=== PATIENT | male | born 1960 | race African-American/Black ===

== ENCOUNTER 2024-11-30 03:50 | Inpatient (IN) | payer OTHER, MEDICAID ==
[~2024-11-30] VITALS: Ht 167.6 cm; Wt 74.5 kg
[2024-11-30] MEDS: ACETAMINOPHEN 325 MG TAB PO ONE (04:10)
--- NOTE | 2024-11-30 04:34 | ED.PDOC ---
SOB-HPI HPI Comments 64-YEAR-OLD MALE PRESENTS TO ER WITH COMPLAINTS OF COUGH X3 DAYS. PATIENT REPORTS THAT HE HAS BEEN EXPERIENCING PRODUCTIVE COUGH WITH GREEN PHLEGM AND CONGESTION X3 DAYS WITH ASSOCIATED FEVER X1 DAY. DENIES USE OF MEDICATIONS FOR CURRENT SYMPTOMS. DENIES ANY CURRENT PAIN. PATIENT PRESENTS TO ER AMBULATORY ON ARRIVAL, WITH STEADY GAIT, IN NO DISTRESS AND IS NOTED TO BE FEBRILE AT 100.9 F. DENIES SHORTNESS OF BREATH, CHEST PAIN, HEMOPTYSIS, SORE THROAT, HEADACHE, DIZZINESS, NAUSEA/VOMITING, KNOWN EXPOSURE TO SICK CONTACTS, CHANGES IN URINATION/BM OR ANY FURTHER SYMPTOMS/COMPLAINTS Chief Complaint: Flu like Time Seen by MD: 04:08 Primary Care Provider: CANDELARIA Bettencourt notes: Nurses Notes, Medications, Allergies Information Source: Patient Mode of Arrival: Ambulatory Past Medical History PAST MEDICAL HISTORY: DM, HTN Past Medical History (Other): CKD Surgical History (Other): CERVICAL SPINAL SURGERY Family History Family History: Unknown Social History Smoker: Non-Smoker Alcohol: Denies ETOH Use Drugs: Denies Drug Use Lives In: Home Constitutional: reports: others ( STATED IN HPI) EENTM: denies: blurred vision, double vision, ear bleeding, ear discharge, ear drainage, ear pain, ear ringing, eye pain, eye redness, hearing loss, mouth pain, mouth swelling, nasal discharge, nose bleeding, nose congestion, nose pain, photophobia, tearing, throat pain, throat swelling, voice changes, others Respiratory: reports: others ( STATED IN HPI) Cardiovascular: denies: chest pain, dizzy spells, diaphoresis, Dyspnea on exertion, edema, irregular heart beat, left arm pain, lightheadedness, palpitations, PND, syncope, others Gastrointestinal: denies: abdomen distended, abdominal pain, blood streaked bowels, constipated, diarrhea, dysphagia, difficulty swallowing, hematemesis, melena, nausea, poor appetite, poor fluid intake, rectal bleeding, rectal pain, vomiting, others Genitourinary: denies: burning, dysuria, flank pain, frequency, hematuria, incontinence, penile discharge, penile sore, pain, testicle pain, testicle swelling, urgency, others Neurological: denies: dizziness, fainting, headache, left sided numbness, left sided weakness, numbness, paresthesia, pre-existing deficit, right sided numbness, right sided weakness, seizure, speech problems, tingling, tremors, weakness, others Musculoskeletal: denies: back pain, gout, joint pain, joint swelling, muscle pain, muscle stiffness, neck pain, others Integumetry: denies: bruises, change in color, change in hair/nails, dryness, laceration, lesions, lumps, rash, wounds, others Allergic/Immunocompromised: denies: Difficulty Healing, Frequent Infections, Hives, Itching, others Hematologic/Lymphatic: denies: anemia, blood clots, easy bleeding, easy bruising, swollen glands, others Endocrine: denies: excessive hunger, excessive sweating, excessive thirst, excessive urination, flushing, intolerance to cold, intolerance to heat, unexplained weight gain, unexplained weight loss, others Psychiatric: denies: anxiety, bipolar disorder, depression, hopeless, panic disorder, schizophrenia, sleepless, suicidal, others Physical Exam General Appearance: No Apparent Distress HEENT: Normal ENT Inspection, PERRL/EOMI, Pharynx Normal, TMs Normal Neck: Full Range of Motion, Non-Tender, Normal Respiratory: Chest Non-Tender, Lungs Clear, No Accessory Muscle Use, No Respiratory Distress, Normal Breath Sounds Cardiovascular: No Murmur, No Gallop, Tachycardia Breast Exam: Deferred Gastrointestinal: NOT DONE Genitalia: Deferred Pelvic: Deferred Rectal: Deferred Extremities: Normal capillary refill, Normal range of motion Neurologic: Alert, geriatric nurse II-XII nml as Tested, No Motor Deficits, Normal Affect, Normal Mood, No Sensory Deficits Cerebellar Function: Normal Reflexes: Normal Skin: Dry, Normal Color, Warm Peripheral Pulses: 3+ Radial (R), 3+ Radial (L), 3+ Brachial (R), 3+ Brachial (L) Lymphatic: No Adenopathy Was a procedure done? Was a procedure done?: No Sedation Sedation?: No Differential Dx Differential Diagnosis: Pulmonary Embolism, Respiratory Distress, Sinusitis, URI X-Ray, Labs, Meds, VS Vital Signs Date Time Temp Pulse Resp B/P (MAP) Pulse Ox O2 Delivery O2 Flow Rate FiO2 11/30/24 06:24 98.5 98.5 11/30/24 06:24 98.5 11/30/24 05:46 94 98 11/30/24 05:24 100.8 11/30/24 05:10 100.8 11/30/24 04:25 18 95 Room Air* 0 21 11/30/24 04:25 100.9 112 18 144/80 (101) 97 100.9 11/30/24 04:10 100.9 11/30/24 03:58 100.9 112 18 144/80 (101) 97 Lab Test 11/30/24 06:15 11/30/24 04:52 11/30/24 04:06 Range/Units Lactic Acid Level 1.4 2.5 *H 0.4-2.0 mmol/L White Blood Count 8.7 4.4-10.8 10^3/uL Red Blood Count 4.16 L 4.5-5.90 10^6/uL Hemoglobin 12.9 L 13.5-17.5 g/dL Hematocrit 38.8 L 41.0-53.0 % Mean Corpuscular Volume 93.3 80.0-100.0 fL Mean Corpuscular Hemoglobin 31.0 28.0-32.0 pg Mean Corpuscular Hemoglobin Concent 33.2 32.0-36.0 g/dL Red Cell Distribution Width 14.1 11.8-14.3 % Platelet Count 260 140-450 10^3/uL Mean Platelet Volume 7.9 6.9-10.8 fL Neutrophils (%) (Auto) 74.7 37.0-80.0 % Lymphocytes (%) (Auto) 11.8 10.0-50.0 % Monocytes (%) (Auto) 11.3 0.0-12.0 % Eosinophils (%) (Auto) 1.6 0.0-7.0 % Basophils (%) (Auto) 0.6 0.0-2.0 % Neutrophils # (Auto) 6.5 1.6-8.6 10 ^3/uL Lymphocytes # (Auto) 1.0 0.4-5.4 10 ^3/uL Monocytes # (Auto) 1.0 0-1.3 10 ^3/uL Eosinophils # (Auto) 0.1 0-0.8 10 ^3/uL Basophils # (Auto) 0.1 0-0.2 10 ^3/uL Nucleated Red Blood Cells 0.0 % Sodium Level 134 L 136-145 mmol/L Potassium Level 3.9 3.5-5.1 mmol/L Chloride Level 104 98-107 mmol/L Carbon Dioxide Level 22 20-31 mmol/L Anion Gap 8 5-15 Blood Urea Nitrogen 14 9-23 mg/dL Creatinine 1.43 H 0.700-1.30 mg/dL Glomerular Filtration Rate Calc 54 >90 mL/min BUN/Creatinine Ratio 9.8 L 10.0-20.0 Serum Glucose 196 H 74-106 mg/dL Hemoglobin A1c 6.4 H <5.7 % A1C Calcium Level 9.3 8.7-10.4 mg/dL Influenza Type A Antigen Negative Negative Influenza Type B Antigen Negative Negative SARS-CoV-2 Antigen (Rapid) Negative NEGATIVE Current Medications Medications (Trade) Dose Ordered Sig/[place] Route Start Time Stop Time Status Last Admin Acetaminophen (Tylenol Tablet) 650 mg ONCE ONCE PO 11/30/24 04:15 11/30/24 04:16 DC 11/30/24 04:10 Ceftriaxone Sodium (Rocephin) 1,000 mg ONCE ONCE IM 11/30/24 04:30 11/30/24 04:31 DC 11/30/24 04:38 Ibuprofen (Motrin Tablet) 800 mg ONCE ONCE PO 11/30/24 05:30 11/30/24 05:31 DC 11/30/24 05:24 Doxycycline Hyclate 100 ml @ 50 mls/hr ONCE ONCE IV 11/30/24 06:15 11/30/24 08:14 DC 11/30/24 06:26 Sodium Chloride 1,000 ml @ 1,000 mls/hr Q1H ONCE IV 11/30/24 06:15 11/30/24 07:14 DC 11/30/24 06:26 Sodium Chloride 1,000 ml @ 75 mls/hr [id number] IV 11/30/24 07:15 11/30/24 07:15 PATIENT: DOUGLAS CONNORACCT: [id number]: [id number] : 1960 LOC: ER ROOM / BED: / AGE / SEX: 64 / M ADM STATUS: REG ER SERVICE [id number] ORDERING PHYSICIAN: CLEVELAND HANEY PROCEDURE(s): CXR1 - CHEST XRAY 1 VIEW REASON: COUGH ORDER NUMBER(s): [id number], ACCESSION NUMBER(s): [id number] CHEST RADIOGRAPH Indication: COUGH Technique: Single frontal view of the chest was obtained COMPARISON: None FINDINGS: Lines and Tubes: None Lungs: Patchy opacities in the right lower lobe. Pleura: No effusion. No pneumothorax. Cardiomediastinal contours: Unremarkable Bones: Unremarkable IMPRESSION: Subtle patchy opacity in the right lower lobe may represent atelectasis or early/ developing pneumonia. ATED BY: CHANDU WILDE MD DICTATED DATE/TIME: 11/30/24543 SIGNED BY: CHANDU WILDE MD SIGNED DATE/TIME: 11/30/24543 CC: CBC ORDERED WITHOUT ANY SIGNIFICANT ABNORMALITIES BMP REVIEWED ALL SWAB RESULTS REVIEWED- NEGATIVE TYLENOL 650 MG P.O. ORDERED ROCEPHIN 1 G IM ORDERED IBUPROFEN 800 MG P.O. ORDERED LACTIC ACID REVIEWED - 2 .4 REPEAT LACTIC ORDERED CHEST X-RAY REVIEWED BLOOD CULTURE ORDERED HEP-LOCK IV ORDERED NS 1 L IV ORDERED DOXYCYCLINE 100 MG IV ORDERED PATIENT RESTING COMFORTABLY AT BEDSIDE IN NO DISTRESS PATIENT PUT UP FOR ADMISSION FOR PNEUMONIA AND NEED FOR IV ANTIBIOTICS Images Reviewed?: Images reviewed and evaluated by me Time of 1ST Reevaluation: 04:32 Reevaluation 1ST: N/A Patient Education/Counseling: Diagnosis, Treatment, Prognosis, Need For Follow Up Family Education/Counseling: No Family Present Departure 1 Departure Time of Disposition: 05:42 Impression: Primary Impression: Pneumonia Qualified Codes: J18.9 - Pneumonia, unspecified organism Disposition: ADMITTED INPATIENT Condition: Stable Critical Care Note Critical Care Time?: No Stability Stability form required: No Heart Score Heart Score: Heart Score Response (Comments) Value History N/A 0 EKG N/A 0 Age N/A 0 Risk Factors N/A 0 Troponin N/A 0 Total 0 CLEVELAND HANEY Nov 30, 2024 04:34
[2024-11-30] MEDS: cefTRIAXone SOD 1,000 MG VL IM ONE (04:38)
[2024-11-30 04:49] LABS: COVID19 ANTIGEN SOFIA FIA NEGATIVE (NEGATIVE)
[2024-11-30 04:50] LABS: Rapid Influenza A Negative (Negative); Rapid Influenza B Negative (Negative)
[2024-11-30 05:14] LABS: Basophils # (auto) 0.1 10 ^3/uL (0-0.2); Basophils % (auto) 0.6 % (0.0-2.0); Eosinophils # (auto) 0.1 10 ^3/uL (0-0.8); Eosinophils % (auto) 1.6 % (0.0-7.0); Hematocrit 38.8 % (41.0-53.0); Hemoglobin 12.9 g/dL (13.5-17.5); Lymphocytes % (auto) 11.8 % (10.0-50.0); Mean Corpuscular Hgb Conc. 33.2 g/dL (32.0-36.0); Mean Corpuscular Volume 93.3 fL (80.0-100.0); Monocytes % (auto) 11.3 % (0.0-12.0); Neutrophils # (auto) 6.5 10 ^3/uL (1.6-8.6); Neutrophils % (auto) 74.7 % (37.0-80.0); Platelet Count (auto) 260 10^3/uL (140-450); Red Blood Cells 4.16 10^6/uL (4.5-5.90); Red Cell Distribution Width 14.1 % (11.8-14.3); White Blood Cell 8.7 10^3/uL (4.4-10.8)
[2024-11-30] MEDS: IBUPROFEN 800 MG TAB PO ONE (05:24)
--- NOTE | 2024-11-30 05:49 | DVH ---
CHEST RADIOGRAPH Indication: COUGH Technique: Single frontal view of the chest was obtained COMPARISON: None FINDINGS: Lines and Tubes: None Lungs: Patchy opacities in the right lower lobe. Pleura: No effusion. No pneumothorax. Cardiomediastinal contours: Unremarkable Bones: Unremarkable IMPRESSION: Subtle patchy opacity in the right lower lobe may represent atelectasis or early/ developing pneumoni a.
[2024-11-30 05:51] LABS: Chloride 104 mmol/L (98-107); Potassium 3.9 mmol/L (3.5-5.1)
[2024-11-30] MEDS ORDERED: AZIT-43 PO (05:51)
[2024-11-30] MEDS ORDERED: PRED10TA PO (05:51)
[2024-11-30] MEDS ORDERED: ACET500T58 PO (05:51)
[2024-11-30 05:52] LABS: Anion Gap 8 (5-15); Carbon Dioxide 22 mmol/L (20-31)
[2024-11-30 05:53] LABS: Calcium 9.3 mg/dL (8.7-10.4)
[2024-11-30 05:55] LABS: Sodium 134 mmol/L (136-145)
[2024-11-30 05:57] LABS: BUN/Creatinine Ratio 9.8 (10.0-20.0); Blood Urea Nitrogen 14 mg/dL (9-23)
[2024-11-30 06:00] LABS: Glucose 196 mg/dL (74-106)
[2024-11-30 06:02] LABS: Lactic Acid w/Reflex 2.5 mmol/L (0.4-2.0)
[2024-11-30] MEDS ORDERED: cefTRIAXone 1GM/50ML D5W 50 ML IV ONE (06:15)
[2024-11-30] MEDS: SODIUM CHLORIDE 0.9% 1,000 ML IV ONE (06:26)
[2024-11-30] MEDS: DOXYCYCLINE 100MG/100ML 100 ML IV ONE (06:26)
[2024-11-30] MEDS ORDERED: ONDANSETRON HCL 4 MG/2 ML VIAL IV PRN (07:15)
[2024-11-30] MEDS ORDERED: ALBUTEROL SULF 2.5 MG/0.5ML(0.5%) NEB SOLN NEB PRN (07:15)
[2024-11-30] MEDS ORDERED: IPRATROPIUM BROM 0.5 MG/2.5ML INH SOL NEB PRN (07:15)
[2024-11-30] MEDS: cefTRIAXone 1GM/50ML D5W 50 ML IV ONE (07:15)
[2024-11-30] MEDS: SODIUM CHLORIDE 0.9% 1,000 ML IV SCH (07:15)
[2024-11-30] MEDS ORDERED: DEXTROSE (50%) 50ML SYRG IV PRN (07:15)
[2024-11-30] MEDS ORDERED: ATOR40TA52 (07:48)
[2024-11-30] MEDS ORDERED: PANT40T (07:48)
[2024-11-30] MEDS ORDERED: LOSA-534 (07:48)
[2024-11-30] MEDS ORDERED: GABA-1250 (07:48)
--- NOTE | 2024-11-30 07:59 | DVHHP2 ---
History of Present Illness Reason for Visit: Cough, congestion, fever, and flu-like symptoms History of Present Illness Derrick Sheppard JR is a 64-year-old male with past medical history of hypertension, diabetes, and CKD who presents to the ED with cough, congestion, fever, and flu-like symptoms x3 days. Patient reports that he has been having productive green sputum. He denies any recent sick contacts. Patient denies any chest pain, shortness of breath, lightheadedness, dizziness, abdominal pain, nausea, vomiting, diarrhea, weakness, and urinary symptoms. Cardiovascular: HTN Renal/: Chronic renal insuff Endocrine: Diabetes Past Surgical History: Other ( Cervical spinal surgeries) Family History: DM, Other (Mom had transverse mellitus and dad had diabetes both ) Smoke: No ALCOHOL: none Drugs: None Lives: with Family Domestic Violence: Neg Review of Systems Constitutional: Yes: Fever; No: Chills, Sweats, Weakness, Malaise, Other Eyes: No: Pain, Vision change, Conjunctivae inflammation, Eyelid inflammation, Other, Redness ENT: No: Ear pain, Ear discharge, Nose pain, Nose discharge, Nose congestion, Mouth pain, Mouth swelling, Throat pain, Throat swelling, Other Respiratory: Cough, Sputum, Other (Congestion); No: Dry, Shortness of breath, SOB with excertion, Wheezing, Hemoptysis, Pleuritic Pain, Wheezing Cardiovascular: No: Chest Pain, Palpitations, Orthopnea, Paroxysmal Noc. Dyspnea, Edema, Lt Headedness, Other Gastrointestinal: No: Nausea, Vomiting, Abdominal Pain, Diarrhea, Constipation, Melena, Hematochezia, Other Genitourinary: No Dysuria, No Frequency, No Incontinence, No Hematuria, No Retention, No Other Musculoskeletal: No: other, neck pain, shoulder pain, arm pain, back pain, hand pain, leg pain, foot pain Skin: No: Rash, Lesions, Jaundice, Bruising, Other Neurological: No: Weakness, Numbness, Incoordination, Change in speech, Confusion, Seizures, Other Allergies: Coded Allergies: Niacin (Verified Allergy, Unknown, 11/30/24) Medications Current Medications Medications Dose Ordered Sig/[place] Route Start Time Stop Time Status Last Admin Dose Admin Ceftriaxone Sodium 50 ml @ 100 mls/hr DAILY@09 IV 11/30/24 09:00 UNV Azithromycin 250 ml @ 125 mls/hr DAILY IV 11/30/24 10:00 UNV Albuterol 2.5 mg Q6HWA NEB 11/30/24 12:00 UNV Albuterol 2.5 mg Q2HPRN PRN NEB 11/30/24 07:15 UNV Ipratropium [place] 0.5 mg Q6HWA NEB 11/30/24 12:00 UNV Ipratropium [place] 0.5 mg Q2HPRN PRN NEB 11/30/24 07:15 UNV Ondansetron HCl 4 mg Q4HP PRN IV 11/30/24 07:15 UNV Acetaminophen 650 mg Q6HP PRN PO 11/30/24 07:15 UNV Sodium Chloride 1,000 ml @ 75 mls/hr [id number] IV 11/30/24 07:15 UNV Diagnostic Test (Pha) 1 strip ACHS 11/30/24 11:30 UNV Insulin Human Regular ACHS SC 11/30/24 11:30 UNV Dextrose 50 ml UD PRN IV 11/30/24 07:15 UNV Exam Vital Signs Vital Signs Date Time Temp Pulse Resp B/P (MAP) Pulse Ox O2 Delivery O2 Flow Rate FiO2 11/30/24 06:24 98.5 98.5 11/30/24 05:46 94 98 11/30/24 04:25 18 Room Air* 0 21 11/30/24 04:25 144/80 (101) General Appearance: Alert, Oriented X3, Cooperative, No acute distress HEENT: Atraumatic, PERRLA, EOMI, Mucous membr. moist/pink Respiratory: Normal air movement Cardiovascular: Regular rate, Normal S1, Normal S2, No murmurs Abdominal: Normal bowel sounds, Soft, No tenderness, No hepatospenomegaly, No masses Extremities: No clubbing, No cyanosis, No edema, Normal pulses, No tenderness/swelling Skin: No rashes, No breakdown, No significant lesion Neuro: Normal gait, Normal speech, Strength at 5/5 X4 ext, Normal tone, Sensation intact Psych/Mental Status: Mental status NL, Mood NL Labs/Xrays Labs Test 11/30/24 06:15 11/30/24 04:52 11/30/24 04:06 Range/Units Lactic Acid Level 1.4 0.4-2.0 mmol/L White Blood Count 8.7 4.4-10.8 10^3/uL Red Blood Count 4.16 L 4.5-5.90 10^6/uL Hemoglobin 12.9 L 13.5-17.5 g/dL Hematocrit 38.8 L 41.0-53.0 % Mean Corpuscular Volume 93.3 80.0-100.0 fL Mean Corpuscular Hemoglobin 31.0 28.0-32.0 pg Mean Corpuscular Hemoglobin Concent 33.2 32.0-36.0 g/dL Red Cell Distribution Width 14.1 11.8-14.3 % Platelet Count 260 140-450 10^3/uL Mean Platelet Volume 7.9 6.9-10.8 fL Neutrophils (%) (Auto) 74.7 37.0-80.0 % Lymphocytes (%) (Auto) 11.8 10.0-50.0 % Monocytes (%) (Auto) 11.3 0.0-12.0 % Eosinophils (%) (Auto) 1.6 0.0-7.0 % Basophils (%) (Auto) 0.6 0.0-2.0 % Neutrophils # (Auto) 6.5 1.6-8.6 10 ^3/uL Lymphocytes # (Auto) 1.0 0.4-5.4 10 ^3/uL Monocytes # (Auto) 1.0 0-1.3 10 ^3/uL Eosinophils # (Auto) 0.1 0-0.8 10 ^3/uL Basophils # (Auto) 0.1 0-0.2 10 ^3/uL Nucleated Red Blood Cells 0.0 % Sodium Level 134 L 136-145 mmol/L Potassium Level 3.9 3.5-5.1 mmol/L Chloride Level 104 98-107 mmol/L Carbon Dioxide Level 22 20-31 mmol/L Anion Gap 8 5-15 Blood Urea Nitrogen 14 9-23 mg/dL Creatinine 1.43 H 0.700-1.30 mg/dL Glomerular Filtration Rate Calc 54 >90 mL/min BUN/Creatinine Ratio 9.8 L 10.0-20.0 Serum Glucose 196 H 74-106 mg/dL Calcium Level 9.3 8.7-10.4 mg/dL Influenza Type A Antigen Negative Negative Influenza Type B Antigen Negative Negative SARS-CoV-2 Antigen (Rapid) Negative NEGATIVE CHEST RADIOGRAPH Indication: COUGH Technique: Single frontal view of the chest was obtained COMPARISON: None FINDINGS: Lines and Tubes: None Lungs: Patchy opacities in the right lower lobe. Pleura: No effusion. No pneumothorax. Cardiomediastinal contours: Unremarkable Bones: Unremarkable IMPRESSION: Subtle patchy opacity in the right lower lobe may represent atelectasis or early/ developing pneumonia. Assessment/Plan Assessment/Plan Assessment/Plan: PNA with probable sepsis ESTHELA on CKD 3 Labs A.m. labs IV antibiotics-ceftriaxone + azithromycin Chest x-ray NS 1 L given ED Doxycycline given in ED Pain management Antiemetics Antipyretics Blood culture Lactic Flu swab COVID swab Chest x-ray in a.m. Diabetes type 2 uncontrolled Hemoglobin A1c ISS and Accu-Cheks Chronic hypertension Continue home medications FEN/PPX diet IV fluids DVT prophylaxis not indicated patient ambulating PUD prophylaxis -Protonix Admit patient to Med surg Discussed plan of care with patient and nurse Home medications reconciled Plan discussed with: Patient My Orders Orders - RONAN SHEA SLOT OPERATIONS DIRECTOR Procedure Category Date Status Time Ceftriaxone 1gm/50ml PHA 11/30/24 Logged D5w (Rocephin) 09:00 Ceftriaxone 1gm/50ml PHA 11/30/24 Logged D5w (Rocephin) 07:15 Azithromycin 500mg/ PHA 11/30/24 Logged 250ml (Zithromax 50 10:00 Azithromycin 500mg/ PHA 11/30/24 Logged 250ml (Zithromax 50 07:15 Albuterol Medneb PHA 11/30/24 Logged (Ventolin Medneb) 12:00 Albuterol Medneb PHA 11/30/24 Logged (Ventolin Medneb) 07:15 Ipratropium Medneb PHA 11/30/24 Logged (Atrovent Medneb) 12:00 Ipratropium Medneb PHA 11/30/24 Logged (Atrovent Medneb) 07:15 Chest Xray 1 View XY 12/01/24 Logged 04:00 Admit ADMIT 11/30/24 Transmitted 07:14 Allergies SHAUN 11/30/24 In Process 07:14 Code Status CODE 11/30/24 Transmitted 07:14 Ondansetron Hcl PHA 11/30/24 Logged (Zofran) 07:15 Complete Blood Count LAB 12/01/24 Verified 04:00 Comprehensive LAB 12/01/24 Verified Metabolic Panel 04:00 Cardiac DIET 11/30/24 Transmitted Diet-2gna,Lofat,Lochol Breakfast Acetaminophen Tablet PHA 11/30/24 Logged (Tylenol Tablet) 07:15 NS PHA 11/30/24 Transmitted 07:15 Hemoglobin A1c LAB 11/30/24 Logged 07:14 Glucose Blood PHA 11/30/24 Logged (Accu-Chek Comfort 11:30 Insulin R (Human) PHA 11/30/24 Logged (Insulin R) 11:30 Dextrose 50% Syringe PHA 11/30/24 Logged 07:15 Date of Service: Nov 30, 2024 Billing Provider: RONAN SHEA Common Visit Codes: [id number] INP/OBS CARE (HIGH) RONAN SHEA Nov 30, 2024 07:59
[2024-11-30] MEDS: AZITHROMYCIN 500MG/ 250ML 250 ML IV ONE (08:39)
[2024-11-30 08:57] VITALS: BP 133/81; PULSE 84; RESP 16; TEMP 97.7; O2SAT 98
[2024-11-30] MEDS ORDERED: ASPI-543 PO (09:16)
[2024-11-30] MEDS ORDERED: LORA-622 PO (09:16)
[2024-11-30] MEDS ORDERED: GLIP10TA9 PO (09:16)
[2024-11-30] MEDS: PANTOPRAZOLE 40 MG/10 ML VIAL INJ IV SCH (09:45)
[2024-11-30] MEDS: cefTRIAXone 1GM/50ML D5W 50 ML IV SCH (09:45)
[2024-11-30 09:50] VITALS: BP 133/81; PULSE 87; RESP 18; TEMP 97.7; O2SAT 99
[2024-11-30] MEDS ORDERED: AZITHROMYCIN 500MG/ 250ML 250 ML IV SCH (10:00)
[2024-11-30] MEDS: ALBUTEROL SULF 2.5 MG/0.5ML(0.5%) NEB SOLN NEB SCH (11:02)
[2024-11-30] MEDS: IPRATROPIUM BROM 0.5 MG/2.5ML INH SOL NEB SCH (11:03)
[2024-11-30 11:05] VITALS: PULSE 84; RESP 18; O2SAT 99
[2024-11-30 11:11] VITALS: PULSE 83; RESP 18; O2SAT 100
[2024-11-30] MEDS: InsuLIN REG 1unit/0.01ml Soln (100units/ml) SC SCH (11:30)
[2024-11-30] MEDS: ACCU-CHEK COMFORT CURVE STRIP VI SCH (11:44)
[2024-11-30 21:06] VITALS: BP 149/78; PULSE 111; RESP 16; TEMP 99; O2SAT 98
[2024-12-01] VITALS (14 sets, daily range): BP systolic 129–152; BP diastolic 66–100; PULSE 92–111; RESP 16–20; TEMP 97.7–99.6; O2SAT 96–100
--- NOTE | 2024-12-01 04:59 | DVH ---
CHEST RADIOGRAPH Indication: pna Technique: Single frontal view of the chest was obtained Comparison: XY CHEST XRAY 1 VIEW on DOS: 11/30/24 FINDINGS: Lines and Tubes: None Lungs: No focal consolidation. Pleura: No effusion. No pneumothorax. Cardiomediastinal contours: Unremarkable Bones: No acute osseous abnormality. IMPRESSION: 1. No acute cardiopulmonary disease.
[2024-12-01 07:44] LABS: Hematocrit 39.1 % (41.0-53.0); Hemoglobin 13.1 g/dL (13.5-17.5); Mean Corpuscular Hemoglobin 30.6 pg (28.0-32.0); Mean Corpuscular Hgb Conc. 33.4 g/dL (32.0-36.0); Mean Corpuscular Volume 91.7 fL (80.0-100.0); Platelet Count (auto) 233 10^3/uL (140-450); Red Blood Cells 4.27 10^6/uL (4.5-5.90); Red Cell Distribution Width 13.8 % (11.8-14.3); White Blood Cell 4.9 10^3/uL (4.4-10.8)
[2024-12-01 07:52] LABS: Band Neutrophils % (manual) 0; Basophils % (manual) 0 (0.0-2.0); Blast Cells 0; Metamyelocytes % 0; Myelocytes % 0; Promyelocytes % 0; Reactive Lymphocytes 0
[2024-12-01 08:05] LABS: Alanine Aminotransferase 18 U/L (7-40); Alkaline Phosphatase 57 U/L (46-116); Anion Gap 7 (5-15); BUN/Creatinine Ratio 11.7 (10.0-20.0); Blood Urea Nitrogen 15 mg/dL (9-23); Calcium 8.7 mg/dL (8.7-10.4); Carbon Dioxide 25 mmol/L (20-31); Chloride 106 mmol/L (98-107); Sodium 138 mmol/L (136-145)
[2024-12-01 08:06] LABS: Albumin 4.1 g/dL (3.2-4.8); Aspartate Aminotransferase 23 U/L (13-40); Bilirubin, Total 0.4 mg/dL (0.2-1.0); Total Protein 6.1 g/dL (5.7-8.2)
[2024-12-01 08:07] LABS: Eosinophils % (manual) 1 (0-7); Lymphocytes % (manual) 23 (10.0-50.0); Monocytes % (manual) 15 (0-12); Platelet Estimate Adequate
[2024-12-01 08:08] LABS: Glucose 113 mg/dL (74-106); Potassium 3.4 mmol/L (3.5-5.1)
[2024-12-01] MEDS: ACETAMINOPHEN 325 MG TAB PO PRN (08:37)
[2024-12-01] MEDS ORDERED: AZITHROMYCIN 500MG/ 250ML 250 ML IV SCH (10:00)
--- NOTE | 2024-12-01 12:58 | DVHPN2 ---
Reviewed: Care Plan, H&P, Labs, Medications, Previous Orders, Radiology Changes from previous H/P or p: No Changes Eyes: No Pain, No Vision change, No Conjunctivae inflammation, No Eyelid inflammation, No Other, No Redness ENT: No Ear pain, No Ear discharge, No Nose pain, No Nose discharge, No Nose congestion, No Mouth pain, No Mouth swelling, No Throat pain, No Throat swelling, No Other Cardiovascular: No Chest Pain, No Palpitations, No Orthopnea, No Paroxysmal Noc. Dyspnea, No Edema, No Lt Headedness, No Other Respiratory: Cough; No Dry, No Shortness of breath, No SOB with excertion, No Wheezing, No Hemoptysis, No Pleuritic Pain; Sputum, Other (Congestion) Gastrointestinal: No Nausea, No Vomiting, No Abdominal Pain, No Diarrhea, No Constipation, No Melena, No Hematochezia, No Other Genitourinary: No Dysuria, No Frequency, No Incontinence, No Hematuria, No Retention, No Other Musculoskeletal: No other, No neck pain, No shoulder pain, No arm pain, No back pain, No hand pain, No leg pain, No foot pain Skin: No Rash, No Lesions, No Jaundice, No Bruising, No Other Objective Vitals Vital Signs Date Time Temp Pulse Resp B/P (MAP) Pulse Ox O2 Delivery O2 Flow Rate FiO2 12/01/24 10:37 95 16 100 12/01/24 09:00 98.0 152/100 (117) 98.0 12/01/24 07:14 Room Air 0.0 12/01/24 07:14 21 Intake/Output Intake and Output 12/01/24 07:00 Intake Total 2000 ml Balance 2000 ml Intake IV Total 2000 ml Medications Current Medications Medications Dose Ordered Sig/[place] Route Start Time Stop Time Status Last Admin Dose Admin Ceftriaxone Sodium 50 ml @ 100 mls/hr DAILY@09 IV 11/30/24 09:00 12/01/24 12:13 100 MLS/HR Albuterol 2.5 mg Q6HWA NEB 11/30/24 12:00 12/01/24 10:34 2.5 MG Albuterol 2.5 mg Q2HPRN PRN NEB 11/30/24 07:15 Ipratropium [place] 0.5 mg Q6HWA NEB 11/30/24 12:00 12/01/24 10:34 0.5 MG Ipratropium [place] 0.5 mg Q2HPRN PRN NEB 11/30/24 07:15 Ondansetron HCl 4 mg Q4HP PRN IV 11/30/24 07:15 Acetaminophen 650 mg Q6HP PRN PO 11/30/24 07:15 12/01/24 08:37 650 MG Sodium Chloride 1,000 ml @ 75 mls/hr [id number] IV 11/30/24 07:15 12/01/24 11:18 75 MLS/HR Diagnostic Test (Pha) 1 strip ACHS 11/30/24 11:30 12/01/24 11:30 1 STRIP Insulin Human Regular ACHS SC 11/30/24 11:30 12/01/24 11:43 2 UNITS Dextrose 50 ml UD PRN IV 11/30/24 07:15 Pantoprazole Sodium 40 mg DAILY IV 11/30/24 10:00 12/01/24 11:17 40 MG Azithromycin 250 ml @ 125 mls/hr DAILY IV 12/01/24 10:00 Hold Laboratory Results Laboratory Tests 12/01/24 06:37 Chemistry Test 12/01/24 06:37 Albumin 4.1 g/dL (3.2-4.8) Calcium Level 8.7 mg/dL (8.7-10.4) Total Protein 6.1 g/dL (5.7-8.2) LFT Test 12/01/24 06:37 Alanine Aminotransferase (ALT) 18 U/L (7-40) Alkaline Phosphatase 57 U/L (46-116) Aspartate Amino Transferase (AST) 23 U/L (13-40) Total Bilirubin 0.4 mg/dL (0.2-1.0) Microbiology Microbiology Date/Time Source Procedure Growth Status 11/30/24 04:52 Blood Blood Culture - Preliminary NO GROWTH AFTER 24 HOURS OF INCUBATION. Resulted Labs and/or images reviewed: Labs reviewed by me, Image(s) reviewed by me Assessment/Plan Assessment/Plan Hypoxic respiratory failure: Oxygen by nasal cannula Sepsis secondary to pneumonia: Blood cultures Community-acquired pneumonia: Rocephin azithromycin albuterol Atrovent Hypertension Diabetes Chronic kidney disease Acute lactic acidosis Flu test negative Judy test negative Condition guarded Time spent 55 minutes Advanced care planning time 20 minutes Patient is full code Plan discussed with: Patient My Orders Orders - JOSE A CHANG MD Procedure Category Date Status Time Azithromycin 500mg/ PHA 12/02/24 Verified 250ml (Zithromax 50 10:00 Azithromycin 500mg/ PHA 12/01/24 Verified 250ml (Zithromax 50 13:00 Date of Service: Dec 01, 2024 Billing Provider: JOSE A CHANG MD Common Visit Codes: [id number] INP/OBS CARE(HIGH) Secondary Visit Codes: [id number] CARE PLAN 30 MINUTES JOSE A CHANG MD Dec 01, 2024 12:57
[2024-12-01] MEDS: AZITHROMYCIN 500MG/ 250ML 250 ML IV ONE (13:00)
[2024-12-02] VITALS (14 sets, daily range): BP systolic 116–142; BP diastolic 60–93; PULSE 59–99; RESP 14–22; TEMP 97.9–98.5; O2SAT 96–100
[2024-12-02] MEDS: AZITHROMYCIN 500MG/ 250ML 250 ML IV SCH (10:36)
--- NOTE | 2024-12-02 10:45 | DVHPN2 ---
Reviewed: Care Plan, H&P, Labs, Medications, Previous Orders, Radiology Changes from previous H/P or p: No Changes Eyes: No Pain, No Vision change, No Conjunctivae inflammation, No Eyelid inflammation, No Other, No Redness ENT: No Ear pain, No Ear discharge, No Nose pain, No Nose discharge, No Nose congestion, No Mouth pain, No Mouth swelling, No Throat pain, No Throat swelling, No Other Cardiovascular: No Chest Pain, No Palpitations, No Orthopnea, No Paroxysmal Noc. Dyspnea, No Edema, No Lt Headedness, No Other Respiratory: Cough, Sputum, Other Gastrointestinal: No Nausea, No Vomiting, No Abdominal Pain, No Diarrhea, No Constipation, No Melena, No Hematochezia, No Other Genitourinary: No Dysuria, No Frequency, No Incontinence, No Hematuria, No Retention, No Other Musculoskeletal: No other, No neck pain, No shoulder pain, No arm pain, No back pain, No hand pain, No leg pain, No foot pain Skin: No Rash, No Lesions, No Jaundice, No Bruising, No Other Objective Vitals Vital Signs Date Time Temp Pulse Resp B/P (MAP) Pulse Ox O2 Delivery O2 Flow Rate FiO2 12/02/24 09:00 98.4 93 16 127/83 (98) 97 98.4 12/01/24 20:00 Room Air* 0 21 Intake/Output Intake and Output 12/02/24 07:00 Intake Total 3145 ml Output Total 1850 ml Balance 1295 ml Intake Oral 2345 ml IV Total 800 ml Output Urine Total 1850 ml # Voids 4 Medications Current Medications Medications Dose Ordered Sig/[place] Route Start Time Stop Time Status Last Admin Dose Admin Ceftriaxone Sodium 50 ml @ 100 mls/hr DAILY@09 IV 11/30/24 09:00 12/02/24 10:25 100 MLS/HR Albuterol 2.5 mg Q6HWA NEB 11/30/24 12:00 12/02/24 06:14 2.5 MG Albuterol 2.5 mg Q2HPRN PRN [facility] 11/30/24 07:15 Ipratropium [place] 0.5 mg Q6HWA NEB 11/30/24 12:00 12/02/24 06:14 0.5 MG Ipratropium [place] 0.5 mg Q2HPRN PRN [facility] 11/30/24 07:15 Ondansetron HCl 4 mg Q4HP PRN IV 11/30/24 07:15 Acetaminophen 650 mg Q6HP PRN PO 11/30/24 07:15 12/01/24 08:37 650 MG Sodium Chloride 1,000 ml @ 75 mls/hr [id number] IV 11/30/24 07:15 12/01/24 23:19 75 MLS/HR Diagnostic Test (Pha) 1 strip ACHS 11/30/24 11:30 12/02/24 06:30 1 STRIP Insulin Human Regular ACHS SC 11/30/24 11:30 12/01/24 11:43 2 UNITS Dextrose 50 ml UD PRN IV 11/30/24 07:15 Pantoprazole Sodium 40 mg DAILY IV 11/30/24 10:00 12/02/24 10:25 40 MG Azithromycin 250 ml @ 125 mls/hr DAILY IV 12/02/24 10:00 12/02/24 10:36 125 MLS/HR Laboratory Results Laboratory Tests 12/01/24 06:37 Microbiology Microbiology Date/Time Source Procedure Growth Status 11/30/24 04:52 Blood Blood Culture - Preliminary NO GROWTH AFTER 48 HOURS OF INCUBATION. Resulted Labs and/or images reviewed: Labs reviewed by me, Image(s) reviewed by me Assessment/Plan Assessment/Plan Acute Hypoxic respiratory failure: Oxygen by nasal cannula Sepsis secondary to pneumonia: Blood cultures negative Community-acquired pneumonia: Rocephin azithromycin albuterol Atrovent Hypertension Diabetes Chronic kidney disease Acute lactic acidosis Flu test negative Judy test negative Condition guarded PCP : [facility] in [place] Time spent 55 minutes Advanced care planning time 20 minutes Patient is full code Plan discussed with: Patient My Orders Orders - JOSE A CHANG MD Procedure Category Date Status Time Azithromycin 500mg/ PHA 12/02/24 In Process 250ml (Zithromax 50 10:00 Date of Service: Dec 02, 2024 Billing Provider: JOSE A CHANG MD Common Visit Codes: [id number] INP/OBS CARE(HIGH) JOSE A CHANG MD Dec 02, 2024 10:45
[2024-12-03] VITALS (10 sets, daily range): BP systolic 129–140; BP diastolic 68–82; PULSE 78–94; RESP 17–20; TEMP 98.1–98.7; O2SAT 97–100
--- NOTE | 2024-12-03 09:29 | DVHPN2 ---
Reviewed: Care Plan, H&P, Labs, Medications, Previous Orders, Radiology Changes from previous H/P or p: No Changes Eyes: No Pain, No Vision change, No Conjunctivae inflammation, No Eyelid inflammation, No Other, No Redness ENT: No Ear pain, No Ear discharge, No Nose pain, No Nose discharge, No Nose congestion, No Mouth pain, No Mouth swelling, No Throat pain, No Throat swelling, No Other Cardiovascular: No Chest Pain, No Palpitations, No Orthopnea, No Paroxysmal Noc. Dyspnea, No Edema, No Lt Headedness, No Other Respiratory: Cough, Sputum, Other Gastrointestinal: No Nausea, No Vomiting, No Abdominal Pain, No Diarrhea, No Constipation, No Melena, No Hematochezia, No Other Genitourinary: No Dysuria, No Frequency, No Incontinence, No Hematuria, No Retention, No Other Musculoskeletal: No other, No neck pain, No shoulder pain, No arm pain, No back pain, No hand pain, No leg pain, No foot pain Skin: No Rash, No Lesions, No Jaundice, No Bruising, No Other Objective Vitals Vital Signs Date Time Temp Pulse Resp B/P (MAP) Pulse Ox O2 Delivery O2 Flow Rate FiO2 12/03/24 09:15 78 20 99 21 12/03/24 09:00 98.7 129/74 (92) 98.7 12/02/24 20:00 Room Air* 0 Intake/Output Intake and Output 12/03/24 07:00 Intake Total 2692.5 ml Output Total 175 ml Balance 2517.5 ml Intake Oral 1680 ml IV Total 1012.5 ml Output Urine Total 175 ml # Voids 9 # Bowel Movements 1 Medications Current Medications Medications Dose Ordered Sig/[place] Route Start Time Stop Time Status Last Admin Dose Admin Ceftriaxone Sodium 50 ml @ 100 mls/hr DAILY@09 IV 11/30/24 09:00 12/03/24 08:55 100 MLS/HR Albuterol 2.5 mg Q6HWA NEB 11/30/24 12:00 12/03/24 05:46 2.5 MG Albuterol 2.5 mg Q2HPRN PRN NEB 11/30/24 07:15 Ipratropium [place] 0.5 mg Q6HWA NEB 11/30/24 12:00 12/03/24 05:46 0.5 MG Ipratropium [place] 0.5 mg Q2HPRN PRN NEB 11/30/24 07:15 Ondansetron HCl 4 mg Q4HP PRN IV 11/30/24 07:15 Acetaminophen 650 mg Q6HP PRN PO 11/30/24 07:15 12/01/24 08:37 650 MG Sodium Chloride 1,000 ml @ 75 mls/hr [id number] IV 11/30/24 07:15 12/03/24 01:42 75 MLS/HR Diagnostic Test (Pha) 1 strip ACHS 11/30/24 11:30 12/03/24 06:59 1 STRIP Insulin Human Regular ACHS SC 11/30/24 11:30 12/02/24 21:30 3 UNITS Dextrose 50 ml UD PRN IV 11/30/24 07:15 Pantoprazole Sodium 40 mg DAILY IV 11/30/24 10:00 12/03/24 08:55 40 MG Azithromycin 250 ml @ 125 mls/hr DAILY IV 12/02/24 10:00 12/03/24 08:54 125 MLS/HR Laboratory Results Laboratory Tests 12/01/24 06:37 Microbiology Microbiology Date/Time Source Procedure Growth Status 11/30/24 04:52 Blood Blood Culture - Preliminary NO GROWTH AFTER 72 HOURS OF INCUBATION. Resulted Labs and/or images reviewed: Labs reviewed by me, Image(s) reviewed by me Assessment/Plan Assessment/Plan Acute Hypoxic respiratory failure: Oxygen by nasal cannula Sepsis secondary to pneumonia: Blood cultures negative Community-acquired pneumonia: Rocephin azithromycin albuterol Atrovent Hypertension Diabetes Chronic kidney disease Acute lactic acidosis Flu test negative Judy test negative Condition guarded Patient feels better on room air and wants to go home Plan discussed with: Patient Date of Service: Dec 03, 2024 Billing Provider: JOSE A CHANG MD Common Visit Codes: [id number] INP/OBS CARE(HIGH) JOSE A CHANG MD Dec 03, 2024 09:29
[2024-12-03] MEDS ORDERED: ALBUAER3 IN (09:32)
[2024-12-03] MEDS ORDERED: AZIT500T66 PO (09:32)
--- NOTE | 2024-12-03 09:35 | DVHDS2 ---
Discharge Summary Date of Admission Nov 30, 2024 at 07:48 Date of Discharge: Dec 03, 2024 Admitting Diagnosis Pneumonia Wounds: None Labs/Diagnostic Data: Laboratory Results Test 12/02/24 21:27 12/01/24 06:37 11/30/24 06:15 11/30/24 04:52 POC Glucose 193 mg/dl (70-106) White Blood Count 4.9 10^3/uL (4.4-10.8) Red Blood Count 4.27 10^6/uL (4.5-5.90) Hemoglobin 13.1 g/dL (13.5-17.5) Hematocrit 39.1 % (41.0-53.0) Mean Corpuscular Volume 91.7 fL (80.0-100.0) Mean Corpuscular Hemoglobin 30.6 pg (28.0-32.0) Mean Corpuscular Hemoglobin Concent 33.4 g/dL (32.0-36.0) Red Cell Distribution Width 13.8 % (11.8-14.3) Platelet Count 233 10^3/uL (140-450) Mean Platelet Volume 8.0 fL (6.9-10.8) Neutrophils (%) (Auto) % (37.0-80.0) Lymphocytes (%) (Auto) % (10.0-50.0) Monocytes (%) (Auto) % (0.0-12.0) Basophils (%) (Auto) % (0.0-2.0) Neutrophils # (Auto) 10 ^3/uL (1.6-8.6) Lymphocytes # (Auto) 10 ^3/uL (0.4-5.4) Monocytes # (Auto) 10 ^3/uL (0-1.3) Differential Total Cells Counted 100.0 (100) Neutrophils % (Manual) 61 (37.0-80.0) Band Neutrophils % (Manual) 0 Lymphocytes % (Manual) 23 (10.0-50.0) Monocytes % (Manual) 15 (0-12) Eosinophils % (Manual) 1 (0-7) Basophils % (Manual) 0 (0.0-2.0) Metamyelocytes % (manual) 0 Myelocytes % (Manual) 0 Promyelocytes % (Manual) 0 Blast Cells % (Manual) 0 Reactive Lymphocytes 0 Platelet Estimate Adequate Sodium Level 138 mmol/L (136-145) Potassium Level 3.4 mmol/L (3.5-5.1) Chloride Level 106 mmol/L (98-107) Carbon Dioxide Level 25 mmol/L (20-31) Anion Gap 7 (5-15) Blood Urea Nitrogen 15 mg/dL (9-23) Creatinine 1.28 mg/dL (0.700-1.30) Glomerular Filtration Rate Calc 62 mL/min (>90) BUN/Creatinine Ratio 11.7 (10.0-20.0) Serum Glucose 113 mg/dL (74-106) Calcium Level 8.7 mg/dL (8.7-10.4) Total Bilirubin 0.4 mg/dL (0.2-1.0) Aspartate Amino Transferase (AST) 23 U/L (13-40) Alanine Aminotransferase (ALT) 18 U/L (7-40) Alkaline Phosphatase 57 U/L (46-116) Total Protein 6.1 g/dL (5.7-8.2) Albumin 4.1 g/dL (3.2-4.8) Lactic Acid Level 1.4 mmol/L (0.4-2.0) Eosinophils (%) (Auto) 1.6 % (0.0-7.0) Eosinophils # (Auto) 0.1 10 ^3/uL (0-0.8) Basophils # (Auto) 0.1 10 ^3/uL (0-0.2) Nucleated Red Blood Cells 0.0 % Hemoglobin A1c 6.4 % A1C (<5.7) Test 11/30/24 04:06 Influenza Type A Antigen Negative (Negative) Influenza Type B Antigen Negative (Negative) SARS-CoV-2 Antigen (Rapid) Negative (NEGATIVE) Other Laboratory Tests 12/01/24 06:37 Brief Hx & Hospital Course: 64-year-old male history of hypertension diabetes chronic kidney disease came in for shortness of breaths found to have sepsis secondary to pneumonia blood cultures negative treated with Rocephin azithromycin albuterol Atrovent Judy test negative flu test negative feels better on room air afebrile vital signs stable discharged home on azithromycin and Ventolin MDI. He will follow up with his primary Dr. Consults/Reason for consult None Operations or Procedures None Condition at Discharge: Fair Final Diagnosis/Problems List Acute Hypoxic respiratory failure: Oxygen by nasal cannula Sepsis secondary to pneumonia: Blood cultures negative Community-acquired pneumonia: Rocephin azithromycin albuterol Atrovent Hypertension Diabetes Chronic kidney disease Acute lactic acidosis Flu test negative Judy test negative Discharge Disposition: Home Discharge Instruct/Medications Diet: Regular Activity: Light activity Follow Up/Referral: Follow up with your primary Dr Medications: Azithromycin [place] MDI Transmitted to [facility] (Time taken For discharge summary 35 minutes) Discharge Statement: "Patient was advised to return to the ER or call 911 if any headaches, dizziness, shortness of breath, chest pain, abdominal pain, bleeding, fevers, or worsening of medical condition. Patient was counseled about treatment plan, medications, possible side effects, patientverbalized understanding. All questions were answered to the best of my ability. This discharge took greater then 30 minutes in planning, reviewing documentation, counseling the patient, and discussing with other team members." ASSESSMENT ASSESSMENT Hospital Course Uneventful Assessment Acute Hypoxic respiratory failure: Oxygen by nasal cannula Sepsis secondary to pneumonia: Blood cultures negative Community-acquired pneumonia: Rocephin azithromycin albuterol Atrovent Hypertension Diabetes Chronic kidney disease Acute lactic acidosis Flu test negative Judy test negative Date of Service: Dec 03, 2024 Billing Provider: JOSE A CHANG MD Common Visit Codes: [id number] DISCH DAY >30min JOSE A CHANG MD Dec 03, 2024 09:35
== END 2024-12-03 11:40 | disposition home or self-care (01) | DRG 871 ==
LOC: ER 03:50 → OVERFLOW 07:48 → WEST WING 23:04
PROVIDERS: ADMIT Family Medicine; ATTEND Family Medicine
DX: A41.9 Sepsis, unspecified organism (principal); J18.9 Pneumonia, unspecified organism; J96.01 Acute respiratory failure with hypoxia; N17.9 Acute kidney failure, unspecified; E87.21 Acute metabolic acidosis; Z20.822 Contact with and (suspected) exposure to COVID-19; N18.30 Chronic kidney disease, stage 3 unspecified; E11.22 Type 2 diabetes mellitus with diabetic chronic kidney disease; I12.9 Hypertensive chronic kidney disease with stage 1 through stage 4 chronic kidney disease, or unspecified chronic kidney disease; Z83.3 Family history of diabetes mellitus; Z79.4 Long term (current) use of insulin; Z79.899 Other long term (current) drug therapy
CPT/HCPCS: 36415; 71045; 80048; 80053; 82962; 83036; 83605; 85007; 85025; 85027; 87040; 87426; 87804; 94640; 96361; 96365; 96367; 96372; G0378; J0696; J1815; J2470